=== PATIENT | female | born 1980 | race Caucasian/White ===

== ENCOUNTER 2019-06-14 03:45 | Emergency (ER) | payer OTHER, SELFPAY ==
[2019-06-14 03:46] VITALS: BP 132/49; PULSE 89; RESP 16; TEMP 36.8; O2SAT 100; BMI 26.6
--- NOTE | 2019-06-14 03:55 | NURSING ---
SPOKE TO NURSE AT [facility] AND WAS INFORMED SHE WILL BE DOING THE DRUG AND ALCOHOL SCREEN SO [facility] WAS CANCELLED
--- NOTE | 2019-06-14 04:05 | ED.VIS.UPPEX ---
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 [id number]. Tetanus Immunization: 5-10 years - around 6-7 yrs ago, pt thinks Past Medical History - Allergies and Home Meds Allergies/Adverse Reactions: Allergies No Known Allergies Allergy (Verified 06/14/19 03:46) Primary Care Physician: Care Physician,No Primary [Primary Care Provider] - Past Medical History: None Smoking Status: Current every day smoker Review of Systems Musculoskeletal: Reports: Extremity Pain Skin: Reports: Wounds Neurological: Denies: Weakness, Parasthesia, Numbness Physical Exam Vital Signs/Narrative: Vital Signs Temp Pulse Resp BP Pulse Ox 06/14/19 03:46 98.3 F 89 16 132/49 H 100 General: Well nourished, Well developed Head: Normocephalic, Atraumatic Extremeties: Mildly tender at laceration flap-shaped at pad of right ring finger. FDP, FDS intact, full range of motion, no bony tenderness. No subungual hematoma or nail/nail bed injury. Skin: Trauma - flap-shaped 1.5cm lac to right ring finger pad, SQ, clean Neurological: Alert, Oriented x3, Cranial nerves II-XII grossly intact, Normal Strength, Normal Sensation, Normal Gait Psychological: Normal affect, Normal Mood Diagnostic/Tx/Re-eval - Medical Decision Making The lab of her finger pad appears to contain dermis and epidermis, but is fairly superficial. Therefore, I sutured it down. As I discussed with the patient, it is possible that this flap may not take, and it may and the skin will then re-granulate, taking longer to heal. Dressed with bacitracin. Her tetanus was updated. She is given appropriate discharge instructions/restrictions and follow-up. Procedures - Lacerations Right ring finger Length: 1.5 cm Shape: Flap Prep: Sterile Conditions, Chlorhexadine Laceration repair: Digital block, Lidocaine - 1% plain, 6 cc total, digital block as well as a small amount of local, Wound explored - Only pulp of finger seen Irrigated (ml): 20 - With chlorhexidine, soaked Number of Sutures/Enterprise: 5 Suture Information: Ethilon, Simple, 5-0 Comment: Repair performed after placing turnicot which was left in place for only around 10 minutes, creating a bloodless field. No complications. ED Disposition - Plan for ED Patient: Disposition: Home or Assisted Living Diagnosis: Laceration of right ring finger, Immunization, tetanus-diphtheria Instructions: LACERATION, Hand Referrals: [facility] [GROUP OF PHYSICIANS] - 10 Day for suture removal
[2019-06-14] MEDS: Diphth,Pertuss(Acell),Tet Vac 0.5 ML Vial IM (04:45)
[2019-06-14 04:58] VITALS: BP 134/74; PULSE 67; RESP 18; O2SAT 97
== END 2019-06-14 05:00 | disposition home or self-care (01) ==
LOC: ED 04:29
PROVIDERS: Emergency Provider Emergency Medicine
DX: S61.214A Laceration without foreign body of right ring finger without damage to nail, initial encounter (principal); W45.8XXA Other foreign body or object entering through skin, initial encounter; Y93.9 Activity, unspecified; Y92.9 Unspecified place or not applicable; Y99.0 Civilian activity done for income or pay; Z23 Encounter for immunization; F17.200 Nicotine dependence, unspecified, uncomplicated
CPT/HCPCS: 12001; 90471; 90715; 99282

== ENCOUNTER → 2020-08-13 08:48 | Outpatient (CLI) | payer OTHER, SELFPAY ==
[2020-08-16 20:07] LABS: QNTFERON TB Mitogen Value > 10.00 IU/mL (.); QNTFERON TB Nil Value 0.03 IU/mL (.); QNTFERON TB1+ Ag Value 0.03 IU/mL (.); QNTFERON TB2+ Ag Value 0.03 IU/mL (.)
[2020-08-16 21:51] LABS: QNTIFERON TB Positive Criteria Negative (Negative)
== END ==
PROVIDERS: Referring Provider Dermatology Pediatric Dermatology; Visit Provider Dermatology Pediatric Dermatology
DX: L40.0 Psoriasis vulgaris (principal); Z79.899 Other long term (current) drug therapy
CPT/HCPCS: 36415; 86480

== ENCOUNTER 2021-07-22 11:15 | Day surgery (SDC) | payer OTHER, SELFPAY ==
--- NOTE | 2021-07-20 16:55 | HP.PCM_ITS ---
History and Physical Date of Admission: 07/22/21 HPI: The patient is a 40 year old female presenting for pre-operative visit. She is scheduled for hysteroscopy, dilation and curettage with Mirena IUD insertion, for menorrhagia, endometrial hyperplasia, dysmenorrhea, and chronic blood loss anemia on 07/22/2021. Procedure discussed along with risks, benefits and complications. Other alternatives discussed for management. Consent form signed? Yes. ? ? PAST MEDICAL HISTORY PAST MEDICAL HISTORY Diagnosis Date ? Cervical radiculitis ? ? Dyspepsia ? ? Iron deficiency anemia secondary to blood loss (chronic) 07/07/2021 ? Ovarian cyst 03/16/2009 ? septated, rt ovary ? Psoriasis ? ? Rh negative state in antepartum period 05/01/2012 ? STITCHES AGE 9 ? STITCHES INB RIGHT LEG FROM FALL ? Varicosities ? ? VERICOSE VIENS RIGHT LEG ? ? PAST SURGICAL HISTORY PAST SURGICAL HISTORY Procedure Laterality Date ? DELIVERY ONLY ? 03/12/2002 ? DELIVERY ONLY ? 11/08/2012 ? , low transverse ? [facility] 10/13/2016 ? Colonoscopy ? D&C, DIAG AND/OR THERAPEUTIC ? ? ? Dilation & curettage ? EAR TUBES HX ? ? ? EGD W/O OR W/BRUSH/WASH ? 02/05/2016 ? EGD ? LIGATE FALLOPIAN TUBE ? 11/08/2012 ? Tubal ligation ? PROCEDURE RM-COLONSCOPY ? 09/25/2006 ? Dr. Shen- diarrhea, Bx ? REMOVAL ADENOIDS,PRIMARY,<12 Y/O ? ? ? REMOVAL GALLBLADDER ? ? ? Cholecystectomy ? STITCHES REMOVE ? ? ? FOOT ? ? ? CURRENT MEDICATIONS Current Outpatient Medications Medication Sig Dispense Refill ? fluticasone (FLONASE) 50 mcg/actuation nasal spray Use 2 Sprays in each nostril once daily. 1 Bottle 5 ? fluticasone (FLONASE) 50 mcg/actuation nasal spray Use 2 Sprays in each nostril once daily. (Patient not taking: Reported on 05/31/2021 ) 1 Bottle 5 ? pantoprazole DR (PROTONIX) 40 mg tablet take 1 tablet by mouth once daily 30 tablet 3 ? fluconazole (DIFLUCAN) 100 mg tablet Take two pills on day one, then one pill daily (Patient not taking: Reported on 12/14/2020 ) 12 tablet 0 ? guselkumab (TREMFYA) 100 mg/mL AutoInjector Inject 1 Syringe subcutaneously every 3 months. (Patient not taking: Reported on 05/03/2021 ) ? ? ? No current facility-administered medications for this visit. ? ? ALLERGIES: Patient has no known allergies. ? PERSONAL HISTORY: SOCIAL HISTORY Social History ? Tobacco Use ? Smoking status: Former Smoker ? ? Years: 2.00 ? ? Quit date: 02/2020 ? ? Years since quittin.4 ? Smokeless tobacco: Never Used Vaping Use ? Vaping Use: Never used Substance Use Topics ? Alcohol use: Yes ? ? Comment: rare- mixed drink socially ? Drug use: No ? FAMILY HISTORY: FAMILY HISTORY FAMILY HISTORY Problem Relation Age of Onset ? Arthritis Mother ? ? Heart Mother ? ? Hypertension Mother ? ? Osteoporosis Mother ? ? Hypertension Father ? ? Diabetes Father ? ? Alzheimer's Disease Maternal Grandfather ? ? Prostate Cancer Maternal Grandfather ? ? ? REVIEW OF SYMPTOMS: GENERAL: denies fevers or chills ENDOCRINOLOGY: has not been on steroids Cardiology : denies palpitations or chest pain Respiratory: denies SOB or cough Hematology: denies history of prolonged bleeding or easy bruising or VTE Allergy: Denies history of personal or family history of allergy to anesthesia ? PHYSICAL EXAMINATION: ? VITALS: Last menstrual period 05/28/2021. ? GENERAL: The patient is well nourished, well hydrated in no acute distress. , The patient is oriented to time, place, and person. NECK: Supple. No lynphadenopathy, normal thyroid, no thyromegaly. LUNGS: Clear to auscultation bilaterally. no wheezes, rhonchi or rales HEART: Regular rate and rhythm, Normal heart sounds and No murmurs or gallops ? IMPRESSION: Menorrhagia, endometrial hyperplasia without atypia, iron deficiency anemia from chronic blood loss ? PLAN: The risks/benefits/alternatives and personal involved for the planned hysteroscopy, dilation and curettage with Mirena IUD insertion were reviewed with the patient. Her questions were answered to her satisfaction and she desires to proceed. Consent was signed. I reviewed with her postop instructions and expectations. ? Patient had a colonoscopy this month, it was negative. ? I have reviewed and updated past medical and surgical history, medications and allergies This H&P was completed in my office on 07/20/21 Assessment & Plan Assessment/Plan (1) Menorrhagia: (2) Endometrial hyperplasia without atypia:
[2021-07-22 11:49] LABS: Internal QC Validated? YES +Cl - CLEAR BKGD; Pregnancy, Urine Negative Negative
[2021-07-22 11:56] VITALS: BP 119/66; PULSE 86; RESP 16; TEMP 36.7; O2SAT 97; BMI 37.0
[2021-07-22 12:03] LABS: Hematocrit 32.7 % (37-47); Hemoglobin 10.3 g/dL (12.0-15.0); Mean Corp Hgb Conc 31.5 g/dL (32-36); Mean Corpuscular Hgb 25.1 pg (27.0-32.0); Mean Corpuscular Volume 79.6 fL (81-99); Mean Platelet Vol. 9.8 fl (6.2-12.0); Platelet Count 320 K/mm3 (150-450); RBC Distribution Width CV 16.1 % (11.6-14.6); RBC Distribution Width SD 46.3 fl (35.1-43.9); Red Blood Count 4.11 M/mm3 (4.2-5.4); White Blood Count 8.5 K/mm3 (4.4-11.0)
[2021-07-22] MEDS: Lactated Ringers 1,000 ML 75 ML IV (12:05)
[2021-07-22] MEDS: Ketorolac 30 MG/ML Syringe IV (12:05)
[2021-07-22] MEDS: Acetaminophen 500 MG Tablet 1000 MG PO (12:06)
[2021-07-22] MEDS: Lidocaine 1% /Epi 1:100 (20ml) 20 ML Vial (12:12)
--- NOTE | 2021-07-22 12:19 | PCM.DC ---
Discharge Instructions Diet Discharge Diet: No restrictions Activity May resume sexual activity in: 2 weeks Lifting Restrictions: none Dressing / Incision Call your doctor if your incision/area has: Sudden Increased Bleeding and Foul Smelling Discharge Call your doctor if you observe: Fever of 101 or Higher and Using more than 1 pad per hour (for 2 hrs in a row) Follow Up Care Please Follow Up With: Lynda Cardozo MD When: 2-4 weeks or as needed. Call [phone] to make an appointment or with any concerns. Test Results: Test results from this visit will be discussed in further detail at your follow-up appointment, if applicable. Discharge Plan Admission Primary Reason for Your Visit: Dilation and curettage with Mirena insertion Attending Provider: Lynda Cardozo Primary Care Provider: Care Physician,Ree Primary Discharge Orders/Prescriptions Prescriptions: No Action multivitamin Tablet 1 tab PO DAILY RF: 0 Referrals / Follow Up: Care Physician,No Primary [Primary Care Provider] - Disposition Disposition (needs filled in before D/C Order can be placed): Home, Self Care
--- NOTE | 2021-07-22 12:37 | PCM.OPRPT ---
Problems Associated Problem List Diagnoses (1) Endometrial hyperplasia without atypia: (2) Menorrhagia: Report of Operation Date of Procedure: 07/22/21 Pre-Operative Diagnosis: Menorrhagia and endometrial hyperplasia without atypia Post-Operative Diagnosis: Same Surgery/Procedure Performed:: Hysteroscopy dilation and curettage with insertion of Mirena intrauterine system Description of Surgical Findings:: Normal endocervical cavity. Lush ragged endometrium with what appeared to be polyps on the mid anterior wall and lower posterior uterine wall. Surgeon: Lynda Cardozo business intelligence etl developer: None Type of Anesthesia: MAC/Supplemental/Local Anesthesiologist: Yariel Mayfield Special Medications: none Specimen's removed: Endometrial curetting Drains: None Estimated Blood Loss (mL): 10 Fluids Replaced: 700 cc Description of Procedure: The patient was taken to the OR where she was prepped and draped in dorsal lithotomy position. The weighted speculum was placed in the vagina and the anterior lip of the cervix was grasped with a single-tooth tenaculum. A paracervical block was administered with [1% lidocaine with 1-100,000 epinephrine solution]. The cervix was dilated serially with Hegar dilators. The [5mm] hysteroscope was placed into the uterine cavity and the above findings were noted. Bilateral tubal ostia [were] identified. The hysteroscope was removed. A gentle sharp curettage was done of the uterine cavity. The hysteroscope was placed back in and no other discrete pathology was noted. The polypoid appearing areas previously noted had been removed completely. The instruments were removed from the vagina. The specimen was handed off and sent to pathology. All sponge and needle counts were correct. The Mirena IUD was inserted in the usual sterile fashion. The strings were cut to 2 cm. Vaginal sweep was performed by me. The patient was awakened and taken to the recovery room in stable condition. Hysteroscopic ins: 300cc normal saline Hysteroscopic outs:200cc Findings: Normal-appearing cervix and vagina. Grafts/Implants Used: Mirena intrauterine system Procedure Start Time: 12:12 Procedure Stop Time: 12:37 Complications none Admit VTE Documentation VTE Present on Admission: No VTE Mechan Device Prophylaxis: SCD's VTE Pharm Prophylaxis ordered?: No Reason prophylaxis not ordered:: Procedure Not Indicated
[2021-07-22 12:45] VITALS: BP 107/50; BP 119/66; PULSE 77; RESP 16; TEMP 36.2; O2SAT 95
[2021-07-22 12:50] VITALS: BP 110/50; BP 119/66; PULSE 82; RESP 16; O2SAT 96
--- NOTE | 2021-07-22 12:55 | EMB_PTH ---
PATIENT: CHELSEY JUÁREZ LOC: [facility] [place] U[place][id number] AGE/SX: 40/F ROOM: RE07/22/[address]: Dr. Lynda Cardozo MD : 1980 BED: DIS: 07/22/2021 SPEC #: [id number] RECD: 07/22/21 15:30 STATUS: RAJINDER AMANDEEP #: [id number] CRISTINA: 07/22/21 12:[address]: Lynda Cardozo DEPT: SURGICAL PATHOLOGY RECD BY: Ana Nieves ENTERED: 07/23/21 12:02 SP TYPE: ENDOM BX/C MIKE DR: No Primary Care Phys Tissues: Endometrium, NOS Procedures: Surgery Specimen Level IV HEADER OPERATION: Hysteroscopy, D & C, Mirena IUD insertion PRE-OP DIAGNOSIS: Menorrhagia, endometrial hyperplasia TISSUE SUBMITTED: Endometrial curettings MICROSCOPIC DIAGNOSIS Endometrium, curettings: Proliferative endometrium. Polypoid fragment of endometrium with simple cystic hyperplasia without atypia. Strips of benign superficial endocervix and squamous mucosa. AM:yissel 07/26/2021 MICROSCOPIC DESCRIPTION Slides are reviewed. GROSS DESCRIPTION Received in fixative is one container labeled with the patient's name and designated endometrial curettings. The specimen consists of multiple irregular fragments of red-winn soft tissue that in aggregate measure 6 x 3 x 0.2 cm. The specimen is totally submitted in two cassettes. / AM:yissel 07/23/21 TC:5 CPT: 21845
[2021-07-22 13:03] VITALS: BP 119/66; BP 96/57; PULSE 80; RESP 16; TEMP 36.2; O2SAT 100
[2021-07-22 13:04] VITALS: BP 105/57; BP 119/66; PULSE 80; RESP 16; TEMP 36.2; O2SAT 100
[2021-07-22 13:45] VITALS: BP 103/82; BP 119/66; PULSE 76; RESP 16; TEMP 36.2; O2SAT 97
== END 2021-07-22 14:04 | disposition home or self-care (01) ==
LOC: SDC 11:19 → AC 11:20
PROVIDERS: Visit Provider Obstetrics & Gynecology
PROC: 0UDB8ZZ Extraction of Endometrium, Via Natural or Artificial Opening Endoscopic (ICD-10-PCS; CPT 58558; principal; 2021-07-22 12:45)
DX: N85.01 Benign endometrial hyperplasia (principal); N92.0 Excessive and frequent menstruation with regular cycle; D50.0 Iron deficiency anemia secondary to blood loss (chronic); K21.9 Gastro-esophageal reflux disease without esophagitis; Z87.891 Personal history of nicotine dependence
CPT/HCPCS: 00952; 58300; 58558; 81025; 85027; 88305; J7120

== ENCOUNTER → 2022-04-15 | Outpatient (CLI) | payer OTHER, SELFPAY ==
[2022-04-15 10:17] LABS: Absolute Lymphocyte Count 2.07 X10^3/uL (0.83-4.51); Absolute Neutrophil Count 7.4 X10^3/uL (2.0-7.7); Basophil# 0.06 X10^3/uL; Basophil% 0.6 % (0-1); Eosinophil# 0.12 X10^3/uL; Eosinophils% 1.2 % (0-5); Hematocrit 37.6 % (37-47); Hemoglobin 12.4 g/dL (12.0-15.0); Lymphocyte # 2.07 X10^3/ul (0.83-4.51); Lymphocyte % 20.2 % (19-41); Mean Corpuscular Volume 87.9 fL (81-99); Mean Platelet Vol. 9.4 fl (6.2-12.0); Monocyte# 0.53 X10^3/uL; Monocyte% 5.2 % (0-10); NRBC Flagged by Analyzer 0 % (0-5); Neutrophil # 7.41 X10^3/uL (2.7-7.7); Neutrophil % 72.1 % (47-70); Platelet Count 345 K/mm3 (150-450); RBC Distribution Width CV 13.2 % (11.6-14.6); Red Blood Count 4.28 M/mm3 (4.2-5.4); White Blood Count 10.3 K/mm3 (4.4-11.0)
[2022-04-15 10:24] LABS: Erythrocyte Sedimentation Rate 28 mm/hr (0-30)
[2022-04-15 10:47] LABS: AST(SGOT) 22 U/L (15-37); Alanine Aminotransfer ALT/SGPT 55 U/L (13-56); Albumin, Serum 3.9 g/dL (3.2-5.0); Alkaline Phosphatase 73 U/L (45-117); Amylase 30 U/L (25-115); Anion Gap 6 (5-15); BUN 12 mg/dL (7-18); BUN/Creat Ratio 15.9 RATIO (10-20); CRP < 2.90 mg/L (0.0-3.0); Calcium,Total 9.2 mg/dL (8.5-10.1); Chloride 104 mmol/L (98-107); Creatinine, Serum 0.76 mg/dL (0.55-1.02); EST Glomerular Filtration Rate 90 mL/min (>60); Est Glom Filt Rate - Afr Amer 108 mL/min (>60); Globulin 3.9 g/dL (2.2-4.2); Glucose 92 mg/dL (74-106); Lipase 127 U/L (73-393); Potassium 3.5 mmol/L (3.5-5.1); Protein, Total 7.8 g/dL (6.4-8.2); Sodium Level 137 mmol/L (136-145)
[2022-04-18 20:15] LABS: Carbohydrate Ag 19-9 2261 6 U/mL (0-35)
== END | disposition home or self-care (01) ==
LOC: LAB 09:03
PROVIDERS: PCP Family Medicine; Referring Provider Nurse Practitioner Adult Health; Visit Provider Nurse Practitioner Adult Health
DX: D49.0 Neoplasm of unspecified behavior of digestive system (principal); R11.0 Nausea; R74.8 Abnormal levels of other serum enzymes; M54.9 Dorsalgia, unspecified; R10.9 Unspecified abdominal pain; Z87.19 Personal history of other diseases of the digestive system
CPT/HCPCS: 36415; 80053; 82150; 83690; 85025; 85652; 86140; 86301

== ENCOUNTER → 2022-04-19 | Outpatient (CLI) | payer OTHER, SELFPAY ==
[2022-04-23 21:19] LABS: Fats, Neutral Normal (.); Fats, Total Normal (.)
[2022-04-23 21:20] LABS: Pancreatic Elastase, Fecal < 50 (>200)
== END | disposition home or self-care (01) ==
LOC: LABSPEC 11:59
PROVIDERS: PCP Family Medicine; Referring Provider Nurse Practitioner Adult Health; Visit Provider Nurse Practitioner Adult Health
DX: D49.0 Neoplasm of unspecified behavior of digestive system (principal); R11.0 Nausea; R74.8 Abnormal levels of other serum enzymes; M54.9 Dorsalgia, unspecified; R10.9 Unspecified abdominal pain; Z87.19 Personal history of other diseases of the digestive system
CPT/HCPCS: 82653; 82705

== ENCOUNTER 2022-07-27 09:35 | Day surgery (SDC) | payer OTHER, SELFPAY ==
[2022-07-27 09:56] VITALS: BP 114/68; PULSE 73; RESP 16; TEMP 36.4; O2SAT 99; BMI 35.2
[2022-07-27] MEDS: Lactated Ringers 1,000 ML 15 ML IV (10:09)
[2022-07-27 10:12] LABS: Internal QC Validated? YES +Cl - CLEAR BKGD; Pregnancy, Urine Negative Negative
--- NOTE | 2022-07-27 11:13 | PCM.HP.BLA ---
History and Physical Date of Admission: 07/27/22 CHELSEY JUÁREZ, is a 41 F who presents to the office today for f/u pancreatitis.? Her severe upper abdominal pain radiates through to the back along with nausea is now completely controlled with Zenpep pancreatic enzymes.? Some constipation from Zenpep however that is managed adequately with MiraLAX.? MRCP performed at [facility] for insurance reasons shows a likely stone in the common bile duct causing pancreatitis. April 2022 labs: Low stool pancreatic elastase Normal CA 19-9 Normal lipase and amylase Normal AST and ALT 03/11/2022 labs revealed ALT slightly elevated at 41, lipase elevated at 105 She established with our office on 04/15/2022 for concern for pancreatitis.? In March 2022 she developed severe mid upper abd pain that radiated to the infrascapular area. Since then she has random pain in the back, in the infrascapular area. Can be severe. Not related to eating. Some relief with heating pad. Having severe nausea, random episodes, very bothersome, no meds for this. No vomiting. The pain and nausea are exactly what she experienced in 2016 when she had pancreatitis that was due to choledocholithiasis. Had cholecystectomy in [place]. No episodes of pancreatitis since then. Although she does note that she has had intermittent intrascapular pain that has been milder throughout the years since she initially had pancreatitis. Reviewed reports from endoscopies and imaging done at [facility]: 10/23/2020 and colonoscopy history of colon polyps, nonbleeding internal hemorrhoids, no specimens collected 10/13/2016 colonoscopy for hematochezia, external hemorrhoids, 110 mm polyp in the cecum, one 5 mm polyp in the proximal ascending colon, pathology report not available at today's appointment 05/06/2016 EGD, indicated for eval of esophageal ulcer, reflux esophagitis, esophageal ulcer present but better, normal stomach, normal duodenum 02/19/2016 EGD esophagitis, normal stomach, normal duodenum, pathology not available for today's appointment 02/23/2016 MRI abdomen mild steatosis of the liver, 4 hepatic lesions consistent with hemangiomas, 4 mm and 5 mm cystic lesions in the body and tail of the pancreas, 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 08/14/2017 MRCP few tiny cystic foci in pancreas, likely sidebranch IPMN, overall grossly similar to prior study, no dominant new lesion, diffuse hepatic steatosis 02/14/2017 MRI abdomen: The previous 4 mm and 5 mm cystic lesions in the body and tail of the pancreas are less prominent on this examination, 5 mm and 3 mm cystic lesions in the head of the pancreas on this examination, that were not noted on the prior study, it could still represent sidebranch IPMN ROS Const Constitutional: No fatigue ENT ENT: No difficulty swallowing Gastro GI: Positive for constipation; No abdominal pain, belching, bloating, change in bowel habits, change in stool character, coffee ground emesis, cramping, diarrhea, heartburn, difficulty swallowing, feeling full early, excessive flatus, incontinent of stools, Vomiting blood/hematemesis, Blood in stool, loose stools, Black,tarry stools, nausea/dyspepsia, pain with swallowing, vomiting or other Musc Musculoskeletal: No joint pain Skin Skin: No yellowing of the eye or itchy eyes Psych Psychiatric: No anxiety and No depression Endo Endocrine: No fatigue Aller/Imm Allergy/Immunologic: No itchy eyes Jason/Lymp Hematologic/Lymphatic: No easy bleeding or easy bruising Exam Const General: cooperative, healthy appearing and comfortable Quality Reporting Tobacco Screening ([facility] 138) Smoking Status: Former smoker Assessment and Plan Assessment and Plan (1) Pancreatitis: ?Status:?Acute (2) Abnormal magnetic resonance cholangiopancreatography (MRCP): ?Status:?Acute ?Plan: 41-year-old female with pancreatitis from likely stone in the common bile duct per MRCP, pain and nausea are controlled now that she takes Zenpep pancreatic enzymes.? She will be scheduled for ERCP with follow-up in office after that. I have re-examined the patient. There are no clinical changes since date of exam.
--- NOTE | 2022-07-27 11:26 | RAD_ITS ---
FL ERCP Biliary Ductal System INDICATION:41 years old Female presenting with PAIN. TECHNIQUE: Spot fluoroscopic images were obtained intraoperatively. Images are submitted from a procedure. Fluoroscopy time: 6.9 seconds Total DAP: 0.77230 Gycm2 Cumulative air karma: 1.90 mGy FINDINGS: 11 spot fluoroscopic images were obtained intraoperatively. Images demonstrate the ERCP probe with wire and catheter insertion followed by contrast injection. No radiologist was present for this procedure. Please see procedure note for further details. RAD/ERCP Biliary Only IMPRESSION: Please see procedure note for further details. Electronically Signed: Esau Au MD at 16:41 EDT ,
[2022-07-27 12:09] VITALS: BP 114/68; BP 124/58; PULSE 84; RESP 16; TEMP 36.4; O2SAT 96
--- NOTE | 2022-07-27 12:09 | OP.ERCP_ITS ---
Patient Name: Lena Hernandez Procedure Date: 07/27/2022 11:19 AM Date of : 1980 Age: 41 Procedure: ERCP Indications: Common bile duct stone(s) Providers: Jose L Christina DO Medicines: General Anesthesia Patient Profile: This is a 41 year old female. Refer to note in patient chart for documentation of history and physical. Patient has symptoms of chronic right upper quadrant abdominal pain. Previously obtained MRI showed a stone in the biliary tree. Complications: No immediate complications. Procedure: Pre-Anesthesia Assessment: - Prior to the procedure, a History and Physical was performed, and patient medications and allergies were reviewed. The risks and benefits of the procedure and the sedation options and risks were discussed with the patient. All questions were answered and informed consent was obtained. Patient identification and proposed procedure were verified by the physician in the pre-procedure area. Mental Status Examination: alert and oriented. Airway Examination: normal oropharyngeal airway and neck mobility. Respiratory Examination: clear to auscultation. CV Examination: normal. Prophylactic Antibiotics: The patient does not require prophylactic antibiotics. Prior Anticoagulants: The patient has taken no previous anticoagulant or antiplatelet agents. ASA Grade Assessment: II - A patient with mild systemic disease. After reviewing the risks and benefits, the patient was deemed in satisfactory condition to undergo the procedure. The anesthesia plan was to use moderate sedation / analgesia (conscious sedation). Immediately prior to administration of medications, the patient was re-assessed for adequacy to receive sedatives. The heart rate, respiratory rate, oxygen saturations, blood pressure, adequacy of pulmonary ventilation, and response to care were monitored throughout the procedure. The physical status of the patient was re-assessed after the procedure. After obtaining informed consent, the scope was passed under direct vision. Throughout the procedure, the patient's blood pressure, pulse, and oxygen saturations were monitored continuously. The Duodenoscope was introduced through the mouth, and advanced to the duodenum and used to inject contrast into the bile duct. The ERCP was accomplished without difficulty. The patient tolerated the procedure well. Scope In: 11:36:38 AM Scope Out: 11:55:02 AM Total Procedure Duration Time 0 hours 18 minutes 24 seconds Findings: The cutter grinder film was normal. The esophagus was successfully intubated under direct vision. The scope was advanced to a normal major papilla in the descending duodenum without detailed examination of the pharynx, larynx and associated structures, and upper GI tract. The upper GI tract was grossly normal. The bile duct was deeply cannulated. Contrast was injected. I personally interpreted the bile duct images. There was brisk flow of contrast through the ducts. Image quality was excellent. Contrast extended to the biliary pancreatic junction. Opacification of the entire opacified area was successful. The maximum diameter of the ducts was 7 mm. The lower third of the main bile duct contained one stone, which was 5 mm in diameter. The upper third of the main bile duct was diffusely dilated, with a stone causing an obstruction. The largest diameter was 8 mm. A straight Roadrunner wire was passed into the biliary tree. A 5 mm biliary sphincterotomy was made with a traction (standard) sphincterotome using ERBE electrocautery. There was no post-sphincterotomy bleeding. The biliary tree was swept with a 15 mm balloon starting at the bifurcation. Sludge was swept from the duct. All stones were removed. Dilation of the common bile duct with a 6-7-8 mm balloon (to a maximum balloon size of 8 mm) dilator was successful. One 10 Fr by 7 cm temporary stent with two internal flaps was placed 5 cm into the common bile duct. Bile flowed through the stent. The stent was in good position. Impression: - The upper third of the main bile duct was dilated, with a stone causing an obstruction. - Choledocholithiasis was found. Complete removal was accomplished by biliary sphincterotomy and balloon extraction. - A biliary sphincterotomy was performed. - The biliary tree was swept. - Common bile duct was successfully dilated. - One temporary stent was placed into the common bile duct. Procedure Code(s): --- Professional --- 62208, Endoscopic retrograde cholangiopancreatography (ERCP); with placement of endoscopic stent into biliary or pancreatic duct, including pre- and post-dilation and guide wire passage, when performed, including sphincterotomy, when performed, each stent [id number], Endoscopic retrograde cholangiopancreatography (ERCP); with removal of calculi/debris from biliary/pancreatic duct(s) 72320, 26, Endoscopic catheterization of the biliary ductal system, radiological supervision and interpretation CPT copyright 2017 [employer]. All rights reserved. The codes documented in this report are preliminary and upon lead nitrate processor review may be revised to meet current compliance requirements. Jose L Christina DO 07/27/2022 12:09:05 PM This report has been signed electronically. Number of Addenda: 0 Note Initiated On: 07/27/2022 11:19 AM
--- NOTE | 2022-07-27 12:10 | OP.CCLET_ITS ---
07/27/2022 Leeroy Sanchez [address] [place] [address] Re : ERCP procedure for Lena Rising Dear Dr. Sanchez This procedure was performed on Wednesday, July 27, 2022. My impressions and recommendations are as follows: Impressions : - The upper third of the main bile duct was dilated, with a stone causing an obstruction. - Choledocholithiasis was found. Complete removal was accomplished by biliary sphincterotomy and balloon extraction. - A biliary sphincterotomy was performed. - The biliary tree was swept. - Common bile duct was successfully dilated. - One temporary stent was placed into the common bile duct. Recommendations : My findings are described in the full procedure note, which is enclosed. If I can be of further assistance, please feel free to contact me at . Sincerely, Jose L Christina, 07/27/2022 12:09:05 PM This report has been signed electronically.
[2022-07-27 12:15] VITALS: BP 114/68; BP 118/58; PULSE 78; RESP 16; O2SAT 96
[2022-07-27 12:30] VITALS: BP 114/68; BP 126/102; PULSE 73; RESP 16; O2SAT 97
[2022-07-27 12:36] VITALS: BP 112/69; BP 114/68; PULSE 68; RESP 16; TEMP 36; O2SAT 96
[2022-07-27 13:18] VITALS: BP 114/68
== END 2022-07-27 13:19 | disposition home or self-care (01) ==
LOC: EN 09:38 → AC 09:38
PROVIDERS: Anesthesiology; PCP Family Medicine; Referring Provider Family Medicine; Visit Provider Internal Medicine Gastroenterology
PROC: (CPT 43260; principal; 2022-07-27 10:25)
DX: K80.51 Calculus of bile duct without cholangitis or cholecystitis with obstruction (principal); K85.90 Acute pancreatitis without necrosis or infection, unspecified; K83.8 Other specified diseases of biliary tract; Z87.891 Personal history of nicotine dependence
CPT/HCPCS: 43264; 43274; 74328; 76000; 81025; 93005; J7120; J2405

== ENCOUNTER → 2022-08-15 | Outpatient (CLI) | payer OTHER, SELFPAY ==
[2022-08-15 16:32] LABS: Hematocrit 36.8 % (37-47); Hemoglobin 12.1 g/dL (12.0-15.0); Mean Corp Hgb Conc 32.9 g/dL (32-36); Mean Corpuscular Hgb 28.5 pg (27.0-32.0); Mean Corpuscular Volume 86.6 fL (81-99); Mean Platelet Vol. 9.7 fl (6.2-12.0); Platelet Count 331 K/mm3 (150-450); RBC Distribution Width CV 14.3 % (11.6-14.6); RBC Distribution Width SD 45.1 fl (35.1-43.9); Red Blood Count 4.25 M/mm3 (4.2-5.4); White Blood Count 9.8 K/mm3 (4.4-11.0)
[2022-08-15 19:10] LABS: CRP < 2.90 mg/L (0.0-3.0); Rheumatoid Factor < 10.0 IU/mL (<15)
[2022-08-17 13:41] LABS: ANTINUCLEAR ANTIBODIES DIRECT Negative (Negative)
[2022-08-22 13:53] LABS: CCP IgG Antibodies 5 units (0-19); HLA B27 Negative (.)
== END | disposition home or self-care (01) ==
LOC: LAB 15:06
PROVIDERS: PCP Family Medicine; Visit Provider Podiatrist
DX: G57.62 Lesion of plantar nerve, left lower limb (principal)
CPT/HCPCS: 36415; 81374; 85027; 86038; 86140; 86200; 86225; 86235; 86431

== ENCOUNTER 2022-10-26 10:39 | Day surgery (SDC) | payer OTHER, SELFPAY ==
[2022-10-26 11:04] VITALS: BP 116/65; PULSE 77; RESP 18; TEMP 36.6; O2SAT 99; BMI 35.3
[2022-10-26 11:08] LABS: Internal QC Validated? YES +Cl - CLEAR BKGD; Pregnancy, Urine Negative Negative
--- NOTE | 2022-10-26 11:10 | PCM.HP.BLA ---
History and Physical Date of Admission: 10/26/22 LENA JUÁREZ, is a 41 F who presents to the office today for Follow up. Lena established with this clinic 04.15.22 with abdominal pain radiating into back, nausea without emesis with a history of pancreatitis r/t choledocholithiasis in 2016 s/p cholecystectomy. PMH anemia, psoriasis, endometrial hyperplasia. MRI abd 4.19.16 [facility] noting hepatic steatosis with hepatic hemangiomas; 4mm and 5mm cystic lesion of body/tail pancreas likely r/t sidebranch IPMN EGD 7..16 [facility] for esophageal ulcer surveillance noting reflux esophagitis; esophageal ulcer present but improved. MRI abd 4.11.17 [facility] noting 4mm and 5mm cystic lesion of body/tail pancreas likely r/t sidebranch IPMN similar to previous study. MRCP 10..17 [facility] noting tiny cystic foci in pancreas, likely r/t sidebranch IPMN similar to previous study; diffuse hepatic steatosis. Colonoscopy 12.20 [facility] for screening with nonbleeding internal hemorrhoids, no specimens collected. Biochemical workup ALT H41, Lipase H105 Biochemical workup Stool testing Zenpep started with positive effect. MRCP 04.20.22 [facility] noting filling defect within distal common duct near ampulla, cannot exclude stone; stable tiny probable sidebranch IPMN within pancreas; hepatic cysts/hemangioma fatty liver. ERCP 07.27.22 upper third main bile duct dilated with stone causing obstruction; coledocholithiasis found and removed via biliary sphincterotomy/balloon extraction; CBD dilated; temporary stent placed in CBD. Plan 06.03.22: Pancreatitis ? Abnormal MRCP ? ERCP. Continue zenpep Since LV she is doing well. She is having some upper abdominal cramping/discomfort that she feels it related to stent placement; occurs intermittently approximately once a day for several seconds and is self-limiting. ROS Const Constitutional: No fatigue ENT ENT: No difficulty swallowing Gastro GI: Positive for constipation; No abdominal pain, belching, bloating, change in bowel habits, change in stool character, coffee ground emesis, cramping, diarrhea, heartburn, difficulty swallowing, feeling full early, excessive flatus, incontinent of stools, Vomiting blood/hematemesis, Blood in stool, loose stools, Black,tarry stools, nausea/dyspepsia, pain with swallowing, vomiting or other Musc Musculoskeletal: No joint pain Skin Skin: No yellowing of the eye or itchy eyes Psych Psychiatric: No anxiety and No depression Endo Endocrine: No fatigue Aller/Imm Allergy/Immunologic: No itchy eyes Jason/Lymp Hematologic/Lymphatic: No easy bleeding or easy bruising Exam Const General: cooperative, healthy appearing and comfortable Quality Reporting Tobacco Screening ([facility] 138) Smoking Status: Former smoker Assessment and Plan Assessment and Plan (1) Hx of pancreatitis: ?Status:?Chronic ?Plan: She underwent ERCP and the findings were follows - The upper third of the main bile duct was dilated, with a stone causing an ?obstruction. - Choledocholithiasis was found.? Complete removal was accomplished by biliary ?sphincterotomy and balloon extraction. - A biliary sphincterotomy was performed. - The biliary tree was swept. - Common bile duct was successfully dilated. - One temporary stent was placed into the common bile duct. He was after her for a stent removal or exchange in the next. (2) IPMN (intraductal papillary mucinous neoplasm): ?Status:?Chronic ?Plan: She has a sidebranch IPMN that we will follow with a CT scan or MRI in the next 6 months. ? ? ? Medications: Refilled scomqz-[id number]-fqitzgv 40,000-126,000- 168,000 unit (Zenpep) ?take at least 1 capsule with snacks, take at least 2 capsules with meals 300 caps 3RF LUDIVINA ? ? I have examined the patient and the H&P has been reviewed. There are no clinical changes since date of exam.
[2022-10-26] MEDS: Lactated Ringers 1,000 ML 15 ML IV (11:13)
--- NOTE | 2022-10-26 12:00 | EGD_PTH ---
PATIENT: CHELSEY JUÁREZ LOC: EN U#:[id number] AGE/SX: 42/F ROOM: RE10/26/[address]: Dr. Jose L Christina DO : 1980 BED: DIS: 10/26/2022 SPEC #: [id number] RECD: 10/26/22 14:38 STATUS: RAJINDER AMANDEEP #: [id number] CRISTINA: 10/26/22 12:[address]: Jose L Christina DEPT: SURGICAL PATHOLOGY RECD BY: Ana Nieves ENTERED: 10/27/22 12:37 SP TYPE: EGD BIOPSY LULÚ DR: Dr. Leeroy Sanchez MD Tissues: Ampulla of Vater Procedures: Surgery Specimen Level IV HEADER OPERATION: ERCP stent removal PRE-OP DIAGNOSIS: History of pancreatitis, intraductal papillary mucinous neoplasm TISSUE SUBMITTED: Ampulla biopsy MICROSCOPIC DIAGNOSIS Ampulla, biopsy: Fragments of duodenal mucosa with ulceration, acute and chronic inflammation, fibrinopurulent exudation, granulation tissue reaction and gastric metaplasia. Negative for malignancy. See comment. MARIELA:yissel 10/28/2022 COMMENT Correlation with clinical, endoscopic findings and appropriate follow up are necessary. MICROSCOPIC DESCRIPTION Slides are reviewed. GROSS DESCRIPTION Received in fixative is one container labeled with the patient's name and designated ampulla biopsy. The specimen consists of multiple irregular fragments of winn soft tissue that in aggregate measure 1 x 0.3 x 0.1 cm. The specimen is totally submitted in one cassette. / MARIELA:yissel 10/27/2022 TC:2 CPT: 28319
--- NOTE | 2022-10-26 12:58 | RAD_ITS ---
STUDY: ERCP. REASON FOR EXAM: Female, 42 years old. STENT REMOVAL FLUOROSCOPY TIME (if supplied): ( 1 minute and 54 seconds ) minutes/seconds. 17 images were submitted. TECHNIQUE: An ERCP was performed by the senior qa tester. Imaging was submitted. COMPARISON: None. FINDINGS: Contrast was injected into the common bile duct. Multiple filling defects are seen most likely representing air bubbles. RAD/ERCP Biliary Only IMPRESSION: Findings suggesting multiple air bubbles seen within the common bile duct. Electronically Signed: Jose Sevilla MD at 15:04 EST ,
--- NOTE | 2022-10-26 13:26 | OP.ERCP_ITS ---
Patient Name: Lena Hernandez Procedure Date: 10/26/2022 12:34 PM Date of : 1980 Age: 42 Procedure: ERCP Indications: Biliary stent removal Providers: Jose L Christina DO Referring MD: Leeroy Sanchez Medicines: Monitored Anesthesia Care Patient Profile: This is a 42 year old female. Refer to note in patient chart for documentation of history and physical. Patient has symptoms of acute right upper quadrant abdominal pain and chronic jaundice. Complications: No immediate complications. Procedure: Pre-Anesthesia Assessment: - Prior to the procedure, a History and Physical was performed, and patient medications and allergies were reviewed. The patient is competent. The risks and benefits of the procedure and the sedation options and risks were discussed with the patient. All questions were answered and informed consent was obtained. Patient identification and proposed procedure were verified by the physician in the pre-procedure area. Mental Status Examination: alert and oriented. Airway Examination: normal oropharyngeal airway and neck mobility. Respiratory Examination: clear to auscultation. CV Examination: normal. Prophylactic Antibiotics: The patient does not require prophylactic antibiotics. Prior Anticoagulants: The patient has taken no previous anticoagulant or antiplatelet agents. After reviewing the risks and benefits, the patient was deemed in satisfactory condition to undergo the procedure. The anesthesia plan was to use general anesthesia. Immediately prior to administration of medications, the patient was re-assessed for adequacy to receive sedatives. The heart rate, respiratory rate, oxygen saturations, blood pressure, adequacy of pulmonary ventilation, and response to care were monitored throughout the procedure. The physical status of the patient was re-assessed after the procedure. After obtaining informed consent, the scope was passed under direct vision. Throughout the procedure, the patient's blood pressure, pulse, and oxygen saturations were monitored continuously. The Duodenoscope was introduced through the mouth, and advanced to the duodenum and used to inject contrast into the bile duct. The ERCP was accomplished without difficulty. The patient tolerated the procedure well. Scope In: 12:57:27 PM Scope Out: 1:13:07 PM Total Procedure Duration Time 0 hours 15 minutes 40 seconds Findings: The assistant clinical nurse manager film was normal. The esophagus was successfully intubated under direct vision. The scope was advanced to a normal major papilla in the descending duodenum without detailed examination of the pharynx, larynx and associated structures, and upper GI tract. The upper GI tract was grossly normal. The bile duct was deeply cannulated. Contrast was injected. Opacification of the lower third of the main bile duct was successful. The maximum diameter of the ducts was 8 mm. The entire biliary tree except for the cystic duct and gallbladder and lower third of the main bile duct contained one stone, which was 6 mm in diameter. The main bile duct was diffusely dilated, with a stone causing an obstruction. The largest diameter was 9 mm. A straight Roadrunner wire was passed into the biliary tree. A 5 mm biliary sphincterotomy was made with a traction (standard) sphincterotome using ERBE electrocautery. There was no post-sphincterotomy bleeding. The biliary tree was swept with a 15 mm balloon starting at the bifurcation. Sludge was swept from the duct. All stones were removed. One stent was removed from the biliary tree using a rat-toothed forceps. The lower third of the main bile duct was biopsied with a cold large-capacity forceps for histology. Biopsy was performed in the ampulla through the ERCP scope with a cold forceps for histology. Biopsies were taken in the second portion of the duodenum through the esophagogastroduodenoscope with the cold forceps for histology. Impression: - Biopsy was performed in the ampulla. - Biopsies were taken with a cold forceps for histology in the second portion of the duodenum. - The entire main bile duct was dilated, with a stone causing an obstruction. - Choledocholithiasis was found. Complete removal was accomplished by biliary sphincterotomy and balloon extraction. - A biliary sphincterotomy was performed. - The biliary tree was swept. - One stent was removed from the biliary tree. - Biopsy was performed in the lower third of the main duct. Procedure Code(s): --- Professional --- 75741, Endoscopic retrograde cholangiopancreatography (ERCP); with removal of foreign body(s) or stent(s) from biliary/pancreatic duct(s) 08242, Endoscopic retrograde cholangiopancreatography (ERCP); with removal of calculi/debris from biliary/pancreatic duct(s) 81977, Endoscopic retrograde cholangiopancreatography (ERCP); with sphincterotomy/papillotomy 30375, Endoscopic retrograde cholangiopancreatography (ERCP); with biopsy, single or multiple 29410, 59, Esophagogastroduodenoscopy, flexible, transoral; with biopsy, single or multiple CPT copyright 2017 [employer]. All rights reserved. The codes documented in this report are preliminary and upon market news reporter review may be revised to meet current compliance requirements. Jose L Christina DO 10/26/2022 1:26:02 PM This report has been signed electronically. Number of Addenda: 0 Note Initiated On: 10/26/2022 12:34 PM
--- NOTE | 2022-10-26 13:27 | OP.CCLET_ITS ---
10/26/2022 Leeroy Sanchez [address] [place] [address] Re : ERCP procedure for Lena Rising Dear Dr. Sanchez This procedure was performed on Wednesday, October 26, 2022. My impressions and recommendations are as follows: Impressions : - Biopsy was performed in the ampulla. - Biopsies were taken with a cold forceps for histology in the second portion of the duodenum. - The entire main bile duct was dilated, with a stone causing an obstruction. - Choledocholithiasis was found. Complete removal was accomplished by biliary sphincterotomy and balloon extraction. - A biliary sphincterotomy was performed. - The biliary tree was swept. - One stent was removed from the biliary tree. - Biopsy was performed in the lower third of the main duct. Recommendations : My findings are described in the full procedure note, which is enclosed. If I can be of further assistance, please feel free to contact me at . Sincerely, Jose L Christina, 10/26/2022 1:26:02 PM This report has been signed electronically.
[2022-10-26 13:31] VITALS: BP 102/38; BP 116/65; PULSE 82; RESP 18; TEMP 36.3; O2SAT 97
[2022-10-26 13:45] VITALS: BP 115/47; BP 116/65; PULSE 78; RESP 18; TEMP 36.4; O2SAT 97
[2022-10-26 13:50] VITALS: BP 116/65; BP 121/82
[2022-10-26 14:07] VITALS: BP 116/65
== END 2022-10-26 14:08 | disposition home or self-care (01) ==
LOC: EN 10:40 → AC 11:03
PROVIDERS: Anesthesiology; PCP Family Medicine; Referring Provider Family Medicine; Visit Provider Internal Medicine Gastroenterology
PROC: (CPT 43260; principal; 2022-10-26 11:40)
DX: K80.51 Calculus of bile duct without cholangitis or cholecystitis with obstruction (principal); K86.1 Other chronic pancreatitis; Z87.891 Personal history of nicotine dependence; Z90.49 Acquired absence of other specified parts of digestive tract
CPT/HCPCS: 43261; 43262; 43264; 43275; 74328; 76000; 81025; 88305; 93005; J7120; J2405

== ENCOUNTER 2022-11-18 07:35 | Day surgery (SDC) | payer OTHER, SELFPAY ==
[2022-11-18] VITALS (7 sets, daily range): BP systolic 94–116; BP diastolic 47–83; PULSE 65–81; RESP 16–18; TEMP 36.4–36.7; O2SAT 93–99; BMI 35.3
[2022-11-18] MEDS: Lactated Ringers 1,000 ML 15 ML IV (08:05)
[2022-11-18 08:52] LABS: Internal QC Validated? YES +Cl - CLEAR BKGD
[2022-11-18 08:53] LABS: Pregnancy, Urine Negative Negative
--- NOTE | 2022-11-18 08:55 | NEUR_PTH ---
PATIENT: CHELSEY JUÁREZ [place] [facility] [place][id number] AGE/SX: 42/F ROOM: RE11/18/[address]: Dr. Anton Figueroa DPM : 1980 BED: DIS: 11/18/2022 SPEC #: [id number] RECD: 11/18/22 12:07 STATUS: RAJINDER AMANDEEP #: [id number] CRISTINA: 11/18/22 08:[address]: Anton Figueroa DEPT: SURGICAL PATHOLOGY RECD BY: Ana Nieves ENTERED: 11/18/22 13:08 SP TYPE: NEUROMA OTHR DR: No Primary Care Phys Tissues: NEUROMA Procedures: Surgery Specimen Level III HEADER OPERATION: Interspace neurectomy with third MPJ plantar plate repair PRE-OP DIAGNOSIS: Neuroma left foot, partial tear plantar plate left foot TISSUE SUBMITTED: Neuroma left foot MICROSCOPIC DIAGNOSIS Neuroma left foot: Consistent with traumatic neuroma. SJ:yissel 11/21/2022 MICROSCOPIC DESCRIPTION Slides are reviewed. GROSS DESCRIPTION Received in fixative is one container labeled with the patient's name and designated neuroma left foot. The specimen consists of an elongated piece of winn soft tissue measuring 3 x 0.3 x 0.1 cm. The entire specimen is submitted in one cassette. / SJ:rg 11/18/2022 TC:5 CPT: 56309
[2022-11-18] MEDS: Cefazolin 2 GM in 0.9% Normal Saline 100 ML IV (09:35)
[2022-11-18] MEDS: Bupivacaine Mpf 0.5% 30 ML VIAL (10:01)
--- NOTE | 2022-11-18 10:18 | PCM.OPRPT ---
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 Patient failed conservative treatment, so surgical management planned. Surgeon: Anton Figueroa contact center associate: None (abundio CORCORAN) Type of Anesthesia: MAC Special Medications: 30cc 0.5% marcaine plain Specimen's removed: Neuroma left 3rd interspace Drains: none Estimated Blood Loss (mL): minimal Fluids Replaced: none Description of Procedure: Patient brought back the operating placed comfortably in supine position all osseous prominences were offloaded prevent any compression neuropraxia's. Patient induced under MAC anesthesia. Well-padded left ankle tourniquet was applied. Left lower extremity scrubbed prepped draped using typical aseptic fashion. Using 20 cc of half percent Marcaine plain a local block was performed to the second third and fourth interdigital spaces using standard technique. Once cleared by anesthesia the left lower extremity was elevated exsanguinated tourniquet was inflated to 250 mmHg. Tourniquet time was noted to be 16 minutes upon deflation. Plantar incision was made after palpation of the third and fourth metatarsal heads this incision was drawn linearly in that interdigital space traversing from the base of the third digit extending just proximal to the metatarsal heads. This incision was made with #15 blade through the epidermis dermis into subcutaneous tissue any bleeders were cauterized at this time blunt dissection was taken down the level of neuroma which was identified as a branch into his inner general digital branches distally and proximally. It was noted to be thickened and bulbous in appearance. This was transected proximally and from a suitable branches distally and sent to pathology for further examination. Additional dissection was taken down bluntly to the third metatarsal phalangeal joint which time the defect and the plantar third metatarsal phalangeal joint centrally was noted upon stressing this appeared to be unstable using a modified Celeste's maneuver to the third MPJ. This was then stabilized with 2-0 Vicryl using a overall very stitch technique. Upon completion of this there is noted to be regain stability of the third digit. Tourniquet was deflated. Incision flushed with copious amounts of normal sterile saline. Deep using simple interrupted buried technique closure was performed using 2-0 Vicryl. Skin closure performed with 3-0 Prolene using combination of horizontal mattress and simple interrupted technique. Incision was dressed with bacitracin Adaptic 4 x 4's Kerlix and a well-padded Morris posterior splint. Prior to incisional dressing additional 10 cc of 0.45% Marcaine plain was used in a local infiltration technique to the incisional site to assist pain management postoperatively. Admits to 30 cc total. Patient was transferred to PACU vital signs stable and vascular status intact all digits for further monitoring prior to discharge. Patient tolerated procedure and anesthesia well in apparent satisfactory condition. She will maintain nonweightbearing status and follow-up in 1 week at which time we will change her dressing.
== END 2022-11-18 12:10 | disposition home or self-care (01) ==
LOC: SDC 07:36 → AC 07:37
PROVIDERS: Anesthesiology; Referring Provider Podiatrist; Visit Provider Podiatrist
PROC: (CPT 28080; principal; 2022-11-18 08:40)
DX: G57.82 Other specified mononeuropathies of left lower limb (principal); M25.375 Other instability, left foot; Z79.82 Long term (current) use of aspirin; Z79.899 Other long term (current) drug therapy; Z87.891 Personal history of nicotine dependence
CPT/HCPCS: 28080; 28313; 01470; 81025; 88304; J7120; J2405

== ENCOUNTER → 2022-12-22 | Outpatient (CLI) | payer OTHER, SELFPAY ==
[2022-12-22 10:11] LABS: Absolute Lymphocyte Count 2.51 X10^3/uL (0.83-4.51); Absolute Neutrophil Count 7.3 X10^3/uL (2.0-7.7); Basophil# 0.06 X10^3/uL; Basophil% 0.6 % (0-1); Eosinophil# 0.17 X10^3/uL; Eosinophils% 1.6 % (0-5); Hematocrit 39.9 % (37-47); Hemoglobin 12.7 g/dL (12.0-15.0); Lymphocyte # 2.51 X10^3/ul (0.83-4.51); Lymphocyte % 23.1 % (19-41); Mean Corp Hgb Conc 31.8 g/dL (32-36); Mean Corpuscular Hgb 28.2 pg (27.0-32.0); Mean Corpuscular Volume 88.5 fL (81-99); Mean Platelet Vol. 9.2 fl (6.2-12.0); Monocyte# 0.63 X10^3/uL; Monocyte% 5.8 % (0-10); NRBC Flagged by Analyzer 0 % (0-5); Neutrophil # 7.34 X10^3/uL (2.7-7.7); Neutrophil % 67.5 % (47-70); Platelet Count 332 K/mm3 (150-450); RBC Distribution Width CV 13.8 % (11.6-14.6); RBC Distribution Width SD 44.4 fl (35.1-43.9); Red Blood Count 4.51 M/mm3 (4.2-5.4); White Blood Count 10.9 K/mm3 (4.4-11.0)
[2022-12-22 10:36] LABS: AST(SGOT) 10 U/L (15-37); Alanine Aminotransfer ALT/SGPT 29 U/L (13-56); Anion Gap 7 (5-15); BUN 10 mg/dL (7-18); BUN/Creat Ratio 14.4 RATIO (10-20); Calcium,Total 9.4 mg/dL (8.5-10.1); Chloride 105 mmol/L (98-107); Creatinine, Serum 0.69 mg/dL (0.55-1.02); EST Glomerular Filtration Rate 98 mL/min (>60); Est Glom Filt Rate - Afr Amer 119 mL/min (>60); Glucose 90 mg/dL (74-106); Sodium Level 138 mmol/L (136-145)
[2022-12-22 11:09] LABS: Hepatitis B Surface Antibody Reactive; Hepatitis B Surface Antigen Non-Reactive (Nonreactive); Hepatitis C Antibody Non-Reactive (Nonreactive)
[2022-12-24 20:07] LABS: QNTFERON TB Mitogen Value > 10.00 IU/mL (.); QNTFERON TB Nil Value 0 IU/mL (.); QNTFERON TB1+ Ag Value 0 IU/mL (.); QNTFERON TB2+ Ag Value 0 IU/mL (.)
[2022-12-24 22:20] LABS: Hepatitis B Core Ab Total Negative (Negative); QNTIFERON TB Positive Criteria Negative (Negative)
== END | disposition home or self-care (01) ==
LOC: MTLAB 09:20
PROVIDERS: Referring Provider Physician Assistant; Visit Provider Physician Assistant
DX: D49.2 Neoplasm of unspecified behavior of bone, soft tissue, and skin (principal); L40.0 Psoriasis vulgaris; D17.1 Benign lipomatous neoplasm of skin and subcutaneous tissue of trunk; Z79.620 Long term (current) use of immunosuppressive biologic; Z79.899 Other long term (current) drug therapy
CPT/HCPCS: 36415; 80048; 84450; 84460; 85025; 86480; 86704; 86706; 86803; 87340

== ENCOUNTER 2023-02-13 09:44 | Day surgery (SDC) | payer OTHER, SELFPAY ==
--- NOTE | 2023-02-13 | COLBX_PTH ---
PATIENT: CHELSEY JUÁREZ LOC: EN U#:[id number] AGE/SX: 42/F ROOM: RE02/13/[address]: Dr. Jose L Christina DO : 1980 BED: DIS: 02/13/2023 SPEC #: [id number] RECD: 02/13/23 12:57 STATUS: RAJINDER AMANDEEP #: [id number] CRISTINA: 02/13/23 00:[address]: Jose L Christina DEPT: SURGICAL PATHOLOGY RECD BY: Marciano Duenas ENTERED: 02/13/23 12:57 SP TYPE: COLON BX OTHR DR: No Primary Care Phys Tissues: Cecum, NOS Procedures: Surgery Specimen Level IV HEADER OPERATION: Colonoscopy (MAC), polypectomy PRE-OP DIAGNOSIS: History of pancreatitis, abdominal pain TISSUE SUBMITTED: Cecal cap polyp MICROSCOPIC DIAGNOSIS Cecal cap polyp, polypectomy: Fragments of small intestinal and colonic mucosa, no pathologic diagnosis. Fragments of fecal material. SJ:yissel 02/14/2023 MICROSCOPIC DESCRIPTION Slides are reviewed. GROSS DESCRIPTION Received in fixative is one container labeled with the patient's name and designated cecal cap polyp. The specimen consists of multiple irregular fragments of light winn soft tissue mixed with fecal material that in aggregate measure 2.0 x 0.7 x 0.2 cm. The specimen is totally submitted in one cassette. / MARIELA:yissel 02/13/2023 TC:4 CPT: 83509
--- NOTE | 2023-02-13 10:16 | PCM.HP.BLA ---
History and Physical Date of Admission: 02/13/23 42 F who presents to the office today for Follow up. Lena established with this clinic 04.15.22 with abdominal pain radiating into back, nausea without emesis with a history of pancreatitis r/t choledocholithiasis in 2016 s/p cholecystectomy. PMH anemia, psoriasis, endometrial hyperplasia. [facility] workup includes the following: MRI abd 4.19.16?noting hepatic steatosis with hepatic hemangiomas; 4mm and 5mm cystic lesion of body/tail pancreas likely r/t sidebranch IPMN EGD 7.16?for esophageal ulcer surveillance noting reflux esophagitis; esophageal ulcer present but improved. MRI abd 4.11.17?noting 4mm and 5mm cystic lesion of body/tail pancreas likely r/t sidebranch IPMN similar to previous study. MRCP 10.07.23?noting tiny cystic foci in pancreas, likely r/t sidebranch IPMN similar to previous study; diffuse hepatic steatosis. Colonoscopy 12?for screening with nonbleeding internal hemorrhoids, no specimens collected. Biochemical workup ?ALT H41, Lipase H105 [facility] established 04.15.22 with continued abdominal pain and nausea. Biochemical workup Stool testing Zenpep started with positive effect. MRCP 04.20.22 [facility] noting filling defect within distal common duct near ampulla, cannot exclude stone; stable tiny probable sidebranch IPMN within pancreas; hepatic cysts/hemangioma fatty liver. ERCP 07.27.22 upper third main bile duct dilated with stone causing obstruction; coledocholithiasis found and removed via biliary sphincterotomy/balloon extraction; CBD dilated; temporary stent placed in CBD. ERCP 10.26.22 noting main BD dilation with stone causing obstruction; choledocholithiasis noted, biliary sphincterotomy and balloon extraction; stent removed from biliary tree. Ampulla pathology with acute/chronic inflammation, ulceration, fibrinopurulent exudate, with tissue reaction and metaplasia. No malignancy. EGD grossly normal. Plan LV 06.03.22: Pancreatitis ? Abnormal MRCP ? ERCP. Continue zenpep Feels she is doing well at this time. There is mild tenderness just above her bellybutton that is not particularly bothersome. Continues Zenpep without adverse effects and feels it is helpful. ROS Const Constitutional: No fatigue ENT ENT: No difficulty swallowing Gastro GI: Positive for constipation; No abdominal pain, belching, bloating, change in bowel habits, change in stool character, coffee ground emesis, cramping, diarrhea, heartburn, difficulty swallowing, feeling full early, excessive flatus, incontinent of stools, Vomiting blood/hematemesis, Blood in stool, loose stools, Black,tarry stools, nausea/dyspepsia, pain with swallowing, vomiting or other Musc Musculoskeletal: No joint pain Skin Skin: No yellowing of the eye or itchy eyes Psych Psychiatric: No anxiety and No depression Endo Endocrine: No fatigue Aller/Imm Allergy/Immunologic: No itchy eyes Jason/Lymp Hematologic/Lymphatic: No easy bleeding or easy bruising Exam Const General: cooperative, healthy appearing and comfortable Quality Reporting Tobacco Screening ([facility] 138) Smoking Status: Former smoker Assessment and Plan Assessment and Plan (1) Hx of pancreatitis: ?Status:?Chronic ?Plan: She has a history of gallstone induced pancreatitis.? She is not have any abdominal pain at this time.? She is compliant with pancreatic enzymes.? She is having more thicker stools without constipation.? She is also increased her fiber in the form of oatmeal on daily basis.? I told her she should balance it off with a yogurt and is with taking fiber and pancreatic enzymes it could make her constipated.? We will also put her on ursodiol 250 mg twice a day. (2) Abdominal pain: ?Status:?Chronic ?Plan: She is not having any abdominal pain with eating.? She did complain of some funny taste in her mouth that I told her could be associated with previous anesthesia.? She would like a referral to nutrition and we will make that referral. ? ? ? Medications: New ursodiol 250 mg? PO BID 60 tabs 5RF ? ? I have examined the patient and the H&P has been reviewed. There are no clinical changes since date of exam.
[2023-02-13 10:31] VITALS: BP 117/72; PULSE 83; RESP 16; TEMP 37; O2SAT 97; BMI 38.5
[2023-02-13] MEDS: Lactated Ringers 1,000 ML 15 ML IV (10:35)
[2023-02-13 11:15] VITALS: BP 101/67; BP 117/72; PULSE 83; RESP 16; TEMP 36.4; O2SAT 94
[2023-02-13 11:20] VITALS: BP 114/52; BP 117/72; PULSE 82; RESP 16; O2SAT 97
[2023-02-13 11:25] VITALS: BP 114/67; BP 117/72; PULSE 85; RESP 18; O2SAT 98
--- NOTE | 2023-02-13 11:25 | OP.CCLET_ITS ---
02/13/2023 No Primary Care Physician Re : Colonoscopy procedure for Lena Hernandez Dear Care Physician This procedure was performed on Monday, February 13, 2023. My impressions and recommendations are as follows: Impressions : - Preparation of the colon was fair. - Diverticulosis in the recto-sigmoid colon, in the sigmoid colon and in the cecum. - Stool in the rectum, in the recto-sigmoid colon, in the sigmoid colon, in the descending colon and at the splenic flexure. - One 9 mm polyp in the cecum, removed with a hot snare. Resected and retrieved. Recommendations : - Repeat colonoscopy in 1 year for surveillance. - Continue present medications. My findings are described in the full procedure note, which is enclosed. If I can be of further assistance, please feel free to contact me at . Sincerely, Jose L Christina, 02/13/2023 11:24:16 AM This report has been signed electronically.
--- NOTE | 2023-02-13 11:25 | OP.COLON_ITS ---
Patient Name: Lena Hernandez Procedure Date: 02/13/2023 10:46 AM Date of : 1980 Age: 42 Procedure: Colonoscopy Indications: Abdominal pain in the left lower quadrant Providers: Jose L Christina DO Referring MD: Jose L Christina DO Medicines: Monitored Anesthesia Care Patient Profile: This is a 42 year old female. Refer to note in patient chart for documentation of history and physical. Last Colonoscopy: none. The patient's first colonoscopy is today. Complications: No immediate complications. Procedure: Pre-Anesthesia Assessment: - Prior to the procedure, a History and Physical was performed, and patient medications and allergies were reviewed. The patient is competent. The risks and benefits of the procedure and the sedation options and risks were discussed with the patient. All questions were answered and informed consent was obtained. Patient identification and proposed procedure were verified by the physician. Mental Status Examination: alert and oriented. Airway Examination: normal oropharyngeal airway and neck mobility. Respiratory Examination: clear to auscultation. CV Examination: normal. Prophylactic Antibiotics: The patient does not require prophylactic antibiotics. Prior Anticoagulants: The patient has taken no previous anticoagulant or antiplatelet agents. After reviewing the risks and benefits, the patient was deemed in satisfactory condition to undergo the procedure. The anesthesia plan was to use monitored anesthesia care (MAC). Immediately prior to administration of medications, the patient was re-assessed for adequacy to receive sedatives. The heart rate, respiratory rate, oxygen saturations, blood pressure, adequacy of pulmonary ventilation, and response to care were monitored throughout the procedure. The physical status of the patient was re-assessed after the procedure. After I obtained informed consent, the scope was passed under direct vision. Throughout the procedure, the patient's blood pressure, pulse, and oxygen saturations were monitored continuously. The Colonoscope was introduced through the anus and advanced to the terminal ileum. The colonoscopy was performed without difficulty. The patient tolerated the procedure well. The quality of the bowel preparation was fair. Scope In: 10:54:39 AM Scope Withdrawal Time 0 hours 10 minutes 28 seconds Scope Out: 11:09:02 AM Total Procedure Duration Time 0 hours 14 minutes 23 seconds Findings: The perianal and digital rectal examinations were normal. A few small and large-mouthed diverticula were found in the recto-sigmoid colon, sigmoid colon and cecum. A moderate amount of stool was found in the rectum, in the recto-sigmoid colon, in the sigmoid colon, in the descending colon and at the splenic flexure, precluding visualization. A 9 mm polyp was found in the cecum. The polyp was sessile. The polyp was removed with a hot snare. Resection and retrieval were complete. Verification of patient identification for the specimen was done. Estimated blood loss was minimal. Impression: - Preparation of the colon was fair. - Diverticulosis in the recto-sigmoid colon, in the sigmoid colon and in the cecum. - Stool in the rectum, in the recto-sigmoid colon, in the sigmoid colon, in the descending colon and at the splenic flexure. - One 9 mm polyp in the cecum, removed with a hot snare. Resected and retrieved. Recommendation: - Repeat colonoscopy in 1 year for surveillance. - Continue present medications. Procedure Code(s): --- Professional --- 86927, Colonoscopy, flexible; with removal of tumor(s), polyp(s), or other lesion(s) by snare technique CPT copyright 2017 [employer]. All rights reserved. The codes documented in this report are preliminary and upon cyber intelligence analyst review may be revised to meet current compliance requirements. Jose L Christina DO 02/13/2023 11:24:16 AM This report has been signed electronically. Number of Addenda: 0 Note Initiated On: 02/13/2023 10:46 AM
[2023-02-13 11:30] VITALS: BP 111/86; BP 117/72; PULSE 80; RESP 16; TEMP 36.6; O2SAT 97
[2023-02-13 11:46] VITALS: BP 117/72
== END 2023-02-13 11:48 | disposition home or self-care (01) ==
LOC: EN 09:46 → AC 09:47
PROVIDERS: Referring Provider Internal Medicine Gastroenterology; Visit Provider Internal Medicine Gastroenterology
PROC: 0DJD8ZZ Inspection of Lower Intestinal Tract, Via Natural or Artificial Opening Endoscopic (ICD-10-PCS; CPT 45378; principal; 2023-02-13 10:55)
DX: K57.30 Diverticulosis of large intestine without perforation or abscess without bleeding (principal); K63.5 Polyp of colon; Z87.891 Personal history of nicotine dependence; Z87.19 Personal history of other diseases of the digestive system
CPT/HCPCS: 45385; 88305; J7120; J2405

== ENCOUNTER 2024-02-21 07:18 | Day surgery (SDC) | payer OTHER, SELFPAY ==
[2024-02-21] VITALS (7 sets, daily range): BP systolic 101–118; BP diastolic 61–66; PULSE 63–76; RESP 16; TEMP 36.3–37.1; O2SAT 92–97; BMI 35.9
[2024-02-21] MEDS: Lactated Ringers 1,000 ML 15 ML IV (07:46)
--- NOTE | 2024-02-21 08:15 | HP.PCM_ITS ---
History and Physical Date of Admission: 02/21/24 Assessment & Plan (1) Personal history of colonic polyps: PLAN: She did not clear very well with the colonoscopy prep. She says the miralax does not work very well for her. We will repeat the colonoscopy in the future with Fabrice prep. 03/06/23827 <Electronically signed by Jose L Friend DO> Date Friend,Jose L DO cc: ~* Signed Intake Vital Signs 12/05/2307:14 02/13/2310:31 Height 5 ft 6 in 5 ft 5 in Intake Visit Reasons: 3 MO FU Allergies No Known Allergies Allergy (Verified 02/13/23 10:10) PFSH Medical History (Updated 03/06/23 @ 08:13 by Sayra Ch) Cervical radiculitis Dyspepsia Epigastric pain Former smoker Gastric reflux History of ulceration Low iron Psoriasis Varicosities of leg Wears dentures Surgical History History of History of colonoscopy History of ERCP History of hysteroscopy Social History Smoking Status: Former smoker alcohol intake: current alcohol intake frequency: a few times a month HPI HPI Details: CHELSEY JUÁREZ, is a 42 F who presents to the office today for PMH anemia, psoriasis, endometrial hyperplasia. 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 MRI abd 4..17 noting 4mm and 5mm cystic lesion of body/tail pancreas likely r/t sidebranch IPMN similar to previous study. MRCP 10..17 noting tiny cystic foci in pancreas, likely r/t sidebranch IPMN similar to previous study; diffuse hepatic steatosis. Colonoscopy 12. for screening with nonbleeding internal hemorrhoids, no specimens collected. Biochemical workup ALT H41, Lipase H105 *BGI established 6.10.22 with abdominal pain radiating into back, nausea without emesis with a history of pancreatitis r/t choledocholithiasis in 2016 s/p cholecystectomy. Biochemical workup Stool testing fats. Elastase L<50. Zenpep started with positive effect. MRCP 04.20.22 [facility] noting filling defect within distal common duct near ampulla, cannot exclude stone; stable tiny probable sidebranch IPMN within pancreas; hepatic cysts/hemangioma fatty liver. OV 7. pancreatitis, abnormal ERCP - ERCP ERCP 07.27.22 upper third main bile duct dilated with stone causing obstruction, removed via biliary sphincterotomy/balloon extraction; CBD dilated; temporary stent placed in CBD. OV 08.18.22 pancreatitis, IPMN ? ERCP repeat and continue Zenpep ERCP 10.26.22 noting main BD dilation with stone causing obstruction; choledocholithiasis noted, biliary sphincterotomy and balloon extraction; stent removed from biliary tree. Ampulla pathology with acute/chronic inflammation, ulceration, fibrinopurulent exudate, with tissue reaction and metaplasia. No malignancy. EGD grossly normal. OV 12.05. pancreatitis, abd pain - start ursodiol. ? MRCP [facility] 12.14.22 ? benign hemangiomas without suspicion; diffuse hepatic steatosis; pancreatic cystic lesions, likely IPMN without worrisome features. ? Colonoscopy 02.13.23 poor prep with moderate amount of stool remaining. Diverticulosis; 9mm cecal sessile polyp without pathologic changes. OV 5.. doing well today without symptoms requiring attention. Continues with Zenpep and ursodiol without adverse reaction. ROS Const Constitutional: No fatigue ENT ENT: No difficulty swallowing Gastro GI: Positive for constipation; No abdominal pain, belching, bloating, change in bowel habits, change in stool character, coffee ground emesis, cramping, diarrhea, heartburn, difficulty swallowing, feeling full early, excessive flatus, incontinent of stools, Vomiting blood/hematemesis, Blood in stool, loose stools, Black,tarry stools, nausea/dyspepsia, pain with swallowing, vomiting or other Musc Musculoskeletal: No joint pain Skin Skin: No yellowing of the eye or itchy eyes Psych Psychiatric: No anxiety and No depression Endo Endocrine: No fatigue Aller/Imm Allergy/Immunologic: No itchy eyes Jason/Lymp Hematologic/Lymphatic: No easy bleeding or easy bruising Exam Const General: cooperative, healthy appearing and comfortable Quality Reporting Tobacco Screening ([facility]) Smoking Status: Former smoker Assessment and Plan Assessment and Plan (1) Exocrine pancreatic insufficiency: Status: Chronic Plan: We will continue the Zenpep as previously ordered. She does occasionally get constipated. Hopefully, we will be able to wean that off in the future. (2) IPMN (intraductal papillary mucinous neoplasm): Status: Chronic Plan: We will repeat her imaging in approximately a year to make sure that the IPMN has not grown (3) Ampullary adenoma: Status: Chronic Plan: . She likely need a repeat EGD with side-viewing scope in order to make sure that she has no recurrence of ampullary adenoma. (4) Hx of pancreatitis: Status: Chronic Plan: She has a history of gallstone induced pancreatitis. She is not have any abdominal pain at this time. She is compliant with pancreatic enzymes. She is having more thicker stools without constipation. She is also increased her fiber in the form of oatmeal on daily basis. I told her she should balance it off with a yogurt and is with taking fiber and pancreatic enzymes it could make her constipated. We will also put her on ursodiol 250 mg twice a day. (5) Abdominal pain: Status: Chronic Plan: She is not having any abdominal pain with eating. She did complain of some funny taste in her mouth that I told her could be associated with previous anesthesia. She would like a referral to nutrition and we will make that referral. I have examined the patient and the H&P has been reviewed. There are no clinical changes since date of exam.
--- NOTE | 2024-02-21 09:13 | OP.COLON_ITS ---
Patient Name: Lena Hernandez Procedure Date: 02/21/2024 8:45 AM Date of : 1980 Age: 43 Procedure: Colonoscopy Indications: High risk colon cancer surveillance: Personal history of colonic polyps Providers: Jose L Christina DO Referring MD: Jose L Christina DO Medicines: Monitored Anesthesia Care Patient Profile: This is a 43 year old female. Refer to note in patient chart for documentation of history and physical. Last Colonoscopy: 1 year ago. Complications: No immediate complications. Procedure: Pre-Anesthesia Assessment: - Prior to the procedure, a History and Physical was performed, and patient medications and allergies were reviewed. The risks and benefits of the procedure and the sedation options and risks were discussed with the patient. All questions were answered and informed consent was obtained. Patient identification and proposed procedure were verified by the physician in the pre-procedure area. Mental Status Examination: alert and oriented. CV Examination: normal. Prophylactic Antibiotics: The patient does not require prophylactic antibiotics. Prior Anticoagulants: The patient has taken no anticoagulant or antiplatelet agents. After reviewing the risks and benefits, the patient was deemed in satisfactory condition to undergo the procedure. The anesthesia plan was to use monitored anesthesia care (MAC). Immediately prior to administration of medications, the patient was re-assessed for adequacy to receive sedatives. The heart rate, respiratory rate, oxygen saturations, blood pressure, adequacy of pulmonary ventilation, and response to care were monitored throughout the procedure. The physical status of the patient was re-assessed after the procedure. After I obtained informed consent, the scope was passed under direct vision. Throughout the procedure, the patient's blood pressure, pulse, and oxygen saturations were monitored continuously. The pediatric colonoscope was introduced through the anus and advanced to the cecum, identified by appendiceal orifice and ileocecal valve. Scope In: 8:52:49 AM Scope Withdrawal Time 0 hours 9 minutes 53 seconds Scope Out: 9:07:37 AM Total Procedure Duration Time 0 hours 14 minutes 48 seconds Findings: The perianal and digital rectal examinations were normal. Multiple small-mouthed diverticula were found in the recto-sigmoid colon and sigmoid colon. The exam was otherwise without abnormality on direct and retroflexion views. Impression: - Diverticulosis in the recto-sigmoid colon and in the sigmoid colon. - The examination was otherwise normal on direct and retroflexion views. - No specimens collected. Recommendation: - Discharge patient to home. - Resume previous diet. - Continue present medications. - Repeat colonoscopy in 5 years for surveillance. Procedure Code(s): --- Professional --- 98477, Colonoscopy, flexible; diagnostic, including collection of specimen(s) by brushing or washing, when performed (separate procedure) CPT copyright 2021 [employer]. All rights reserved. The codes documented in this report are preliminary and upon armhole feller handstitching machine review may be revised to meet current compliance requirements. Jose L Christina DO 02/21/2024 9:12:57 AM This report has been signed electronically. Number of Addenda: 0 Note Initiated On: 02/21/2024 8:45 AM
--- NOTE | 2024-02-21 09:13 | OP.CCLET_ITS ---
02/21/2024 No Primary Care Physician Re : Colonoscopy procedure for Lena Hernandez Dear Care Physician This procedure was performed on Wednesday, February 21, 2024. My impressions and recommendations are as follows: Impressions : - Diverticulosis in the recto-sigmoid colon and in the sigmoid colon. - The examination was otherwise normal on direct and retroflexion views. - No specimens collected. Recommendations : - Discharge patient to home. - Resume previous diet. - Continue present medications. - Repeat colonoscopy in 5 years for surveillance. My findings are described in the full procedure note, which is enclosed. If I can be of further assistance, please feel free to contact me at . Sincerely, Jose L Christina, 02/21/2024 9:12:57 AM This report has been signed electronically.
== END 2024-02-21 09:52 | disposition home or self-care (01) ==
LOC: EN 07:19 → AC 07:20
PROVIDERS: Visit Provider Internal Medicine Gastroenterology
PROC: 0DJD8ZZ Inspection of Lower Intestinal Tract, Via Natural or Artificial Opening Endoscopic (ICD-10-PCS; CPT 45378; principal; 2024-02-21 08:25)
DX: Z12.11 Encounter for screening for malignant neoplasm of colon (principal); K57.30 Diverticulosis of large intestine without perforation or abscess without bleeding; Z86.010 Personal history of colon polyps; Z87.891 Personal history of nicotine dependence; K21.9 Gastro-esophageal reflux disease without esophagitis; K86.81 Exocrine pancreatic insufficiency; D13.6 Benign neoplasm of pancreas; Z87.19 Personal history of other diseases of the digestive system; D13.5 Benign neoplasm of extrahepatic bile ducts
CPT/HCPCS: 45378; J7120; J2405